=== PATIENT | female | born 1965 | race Caucasian/White ===

== ENCOUNTER 2016-12-20 17:35 | Emergency (ER) | payer BC ==
--- NOTE | ~2016-12-20 | CT4 ---
[facility] A Service of [facility] RADIOLOGY TEXT RESULTS PATIENT: YENY BROOKS LOCATION: SED : 63 UNIT #: [id number] AGE: [address]: Kendrick Andrea SEX: F ORDER DR: [id number] [address] [address] [id number] MR#: [id number] Acc #: [id number] NAME: YENY BROOKS : 1965 SEX: F STUDY DATE/TIME: 12/20/2016 20:42 UNIT: SED ROOM: STUDY DESCRIPTION: CT Abd and Pelv Wo Cont Attending Physician: Kendrick Andrea P.A.-C. Ordering Physician: Kendrick Andrea P.A.-C. Primary Care Physician: Pj Roldan M.D. MEDICAL IMAGING REPORT This report is preliminary unless electronic signature is present. EXAM CT scan of the abdomen and pelvis without contrast, 12/20/2016 HISTORY Right-side abdominal pain, right flank pain and right back pain with vomiting and hematuria beginning this morning. History of kidney stones. Evaluate for obstructing renal calculus. TECHNIQUE Spiral CT was performed through the abdomen and pelvis without oral or intravenous contrast administration, using renal stone protocol. This CT exam was performed with one or more of the following radiation dose reduction techniques: Automatic exposure control, adjustment of mA and/or kV according to patient size, and iterative reconstruction. FINDINGS ABDOMEN: There is no obstructing renal or ureteral calculus. Both kidneys demonstrate an extrarenal pelvis. The liver, spleen, pancreas, gallbladder and biliary tree, adrenal glands are normal. PELVIS FINDINGS: The gut, mesenteric and geovanny structures are normal. There is no free fluid in the abdomen or pelvis. IMPRESSION No obstructing renal or ureteral calculus. Dictated by... Marcio Riojas M.D. THIS IS AN ELECTRONICALLY VERIFIED REPORT Marcio Riojas M.D. at 12/21/2016 2:14 PM [facility] A Service of [facility] RADIOLOGY TEXT RESULTS PATIENT: YENY BROOKS LOCATION: SED : 63 UNIT #: [id number] AGE: [address]: Kendrick Andrea SEX: F ORDER DR: Avelina TD: 12/21/2016 02:42 JOB #: [id number] MEDICAL IMAGING REPORT Page 1 of 1
[2016-12-20 18:21] LABS: URINE SOURCE CLEAN CATCH
[2016-12-20 18:25] LABS: MICRO INDICATED? YES; URINE APPEARANCE HAZY; URINE BLOOD 3+ (NEG); URINE COLOR YELLOW; URINE GLUCOSE NEG (NORM); URINE KETONE TRACE (NEG); URINE LEUKOCYTE ESTERASE NEG (NEG); URINE NITRATE NEG (NEG); URINE PH 5.5 (5-8); URINE PROTEIN NEG (NEG); URINE SPECIFIC GRAVITY 1.025 (1.003-1.035); URINE UROBILINOGEN 0.2 MG/DL (NORM)
[2016-12-20 18:26] LABS: URINE BILIRUBIN NEG (NEG)
[2016-12-20 18:30] LABS: CULTURE INDICATED? YES; URINE BACTERIA 1+ (NEG); URINE MUCUS PRESENT; URINE RBC 50-100 /[HPF] (0-2); URINE SQUAMOUS EPITHELIAL CELL OCCAS /[HPF]; URINE TRANSITIONAL EPI CELLS FEW /[HPF]
[2016-12-20 20:20] LABS: BASOPHIL% 0.4 % (0-2.5); HEMATOCRIT 41.4 % (35.0-45.0); HEMOGLOBIN 13.9 gm/dL (12.0-16.0); LYMPHOCYTE# 0.5 X10e3 (1.0-3.5); LYMPHOCYTE% 9.6 % (17.0-45.0); MEAN CORPUSCULAR HEMOGLOBIN 28.1 PG (28-34); MEAN CORPUSCULAR HGB CONC 33.5 g/dL (30-36); MEAN PLATELET VOLUME 8.4 FL (6.5-11.5); MONOCYTE# 0.3 X10e3 (0-1.0); MONOCYTE% 5.4 % (3.0-12.0); NEUTROPHIL# 4.7 X10e3 (1.5-7.1); NEUTROPHIL% 84.6 % (40-75); PLATELET COUNT 214 X10e3 (140-420); RED BLOOD COUNT 4.93 X10e (3.90-5.30); WHITE BLOOD COUNT 5.5 X10e3 (4.0-10.5)
[2016-12-20 20:22] LABS: DIFF IND NO
[2016-12-20 20:44] LABS: ALBUMIN SERUM 4.3 g/dL (3.5-5.0); ALKALINE PHOSPHATASE 56 U/L (32-92); ALT (SGPT) 19 U/L (10-40); AST (SGOT) 23 U/L (10-42); BILIRUBIN,TOTAL 0.7 mg/dL (0.2-2.0); BLOOD UREA NITROGEN 18 mg/dL (9-23); CALCIUM SERUM 9.6 mg/dL (8.4-10.2); CARBON DIOXIDE 27 mmol/L (22-31); CHLORIDE 102 mmol/L (100-111); CREATININE SERUM 0.9 mg/dL (0.6-1.4); GLOM FILT RATE Estimated 73.6 mL/min (>60); GLUCOSE FASTING 88 mg/dL (70-110); LIPASE 35 U/L (22-51); POTASSIUM 3.3 mmol/L (3.5-5.1); PROTEIN TOTAL SERUM 7.5 g/dL (6.0-8.3); SODIUM 138 mmol/L (135-145)
[2016-12-20 20:48] LABS: BILIRUBIN, DIRECT <0.1 mg/dL (0.0-0.2); BILIRUBIN,INDIRECT 0.6 mg/dL (0.0-0.9)
== END 2016-12-20 21:53 | disposition home or self-care (01) ==
LOC: SED 17:35
PROVIDERS: Emergency Medicine; Physician Assistant
DX: R31.9 Hematuria, unspecified (principal); Z98.890 Other specified postprocedural states
CPT/HCPCS: 36415; 74176; 80048; 80076; 81003; 83690; 85025; 87086; 96361; 96374; 96375; 99284; J1885; J2405